=== PATIENT | female | born 1970 | race Caucasian/White ===

== ENCOUNTER 2017-01-04 22:07 | Emergency (ER) | payer OTHER ==
[~2017-01-04] VITALS: Ht 175.3 cm; Wt 81.6 kg
[~2017-01-04 22:07] MED LIST: PRILOSEC20 MG PO
[2017-01-04 23:52] VITALS: BP 123/76
== END 2017-01-04 23:52 | disposition home or self-care (01) ==
LOC: ED 22:07
DX: M77.9 Enthesopathy, unspecified (principal)